=== PATIENT | male | born 1980 | race Two or more races ===

== ENCOUNTER 2020-02-16 11:47 | Emergency (ER) | payer MEDICAID ==
[~2020-02-16] VITALS: Ht 167.6 cm; Wt 113.3 kg
--- NOTE | 2020-02-16 11:49 | NUR ---
OPERATIONS PROCESSOR: STROKE PRE-ALERT FROM [facility] DISPATCH 1135. ERP NOTIFIED. CODE NEURO PAGED. PT ARRIVED TO ED AT 1147. DR. JOHNSON AT BEDSIDE FOR EVALUATION WITH PRIMARY RN KAITLIN.
[2020-02-16] MEDS ORDERED: OMNIPAQUE 350 MG/ML, 100ML BOTTLE ONE (11:50)
--- NOTE | 2020-02-16 11:51 | NUR ---
CODE NEURO CALLED OVER HEAD @ 2125 AND INSTRUMENT MAINTENANCE SUPERVISOR NEURO CALLED @2095.
--- NOTE | 2020-02-16 12:10 | NUR ---
PT RETURNED FROM CT [facility]IA [facility] AT THIS TIME
[2020-02-16 12:15] LABS: BASOPHILS # (AUTO) 0.06 x10^3/uL (0-0.1); BASOPHILS % (AUTO) 1 % (0-1); EOSINOPHILS # (AUTO) 0.27 x10^3/uL (0-0.4); EOSINOPHILS % (AUTO) 3 % (1-7); LYMPHOCYTES # (AUTO) 2.32 x10^3/uL (1-3.4); LYMPHOCYTES % (AUTO) 23 % (22-44); MD NO; MEAN CORPUSCULAR HEMOGLOBIN 29.3 pg (27.5-34.5); MEAN CORPUSCULAR HGB CONC 33.2 g/dL (33.2-36.2); MEAN PLATELET VOLUME 8.8 fL (7.4-10.4); MONOCYTES # (AUTO) 0.61 x10^3/uL (0.2-0.8); MONOCYTES % (AUTO) 6 % (2-9); NEUTROPHILS % (AUTO) 68 % (42-75); PLATELET COUNT 283 x10^3/uL (130-400); RED CELL DISTRIBUTION WIDTH 13.2 % (9.4-14.8)
[2020-02-16 12:26] LABS: INTERNATIONAL NORMALIZED RATIO 0.97 (0.93-1.1)
[2020-02-16] MEDS ORDERED: LABETALOL 5MG/ML, 20ML IVPush ONE (12:30)
[2020-02-16] MEDS ORDERED: LABETALOL 20 MG/4 ML ONE (12:31)
--- NOTE | 2020-02-16 12:33 | NUR ---
NEURO CALLED FOR CONSULT @4410
[2020-02-16 12:40] VITALS: BP 156/102
--- NOTE | 2020-02-16 13:06 | NUR ---
Jessica belle in ED - 02/16/20 at 1307 by LUZ REPORT TO BIJAN VALERA RN AT [facility].
--- NOTE | 2020-02-16 13:08 | NUR ---
REPORT TO BIJAN VALERA RN AT [facility].
--- NOTE | 2020-02-16 13:08 | NUR ---
PT PREPARED FOR TRANSFER SECOND PATIENT
== END 2020-02-16 19:19 | disposition designated cancer center or children's hospital (05) ==
LOC: ED 12:55
DX: I63.331 Cerebral infarction due to thrombosis of right posterior cerebral artery (principal); R94.31 Abnormal electrocardiogram [ECG] [EKG]; E11.9 Type 2 diabetes mellitus without complications; I10 Essential (primary) hypertension
CPT/HCPCS: 36415; 70450; 70496; 70498; 80047; 85025; 85610; 85730; 93005; 96374; 99291; Q9967